=== PATIENT | male | born 1980 | race Caucasian/White ===

== ENCOUNTER 2019-01-10 21:11 | Emergency (ER) | payer SELFPAY ==
[~2019-01-10] VITALS: Ht 165.1 cm; Wt 81.6 kg
[2019-01-10 21:15] VITALS: BP 137/90
--- NOTE | 2019-01-10 21:15 | NUR ---
TO BED # 04 AMBULATORY
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
[2019-01-10] MEDS ORDERED: LIDOCAINE 1% 500 MG/50 ML VIAL INJ SCH (21:40)
[2019-01-10] MEDS ORDERED: LIDOCAINE MPF 1% - 5 mL VIAL 10 ML ONE ×2 (21:50→22:07)
--- NOTE | 2019-01-10 22:06 | NUR ---
Dr. Sullivan examining patient.
--- NOTE | 2019-01-10 22:12 | NUR ---
DR. BLEVINS PERFORMING LAC REPAIR TO LEFT HAND AT BEDSIDE. LIDOCAINE 1% [address] BLEVINS.
--- NOTE | 2019-01-10 22:15 | NUR ---
TDAP CONSENT FORM PROVIDED AND SIGNED.
--- NOTE | 2019-01-10 22:20 | NUR ---
Patient has approximately 8 cm laceration to left hand. Dr. Sullivan applied 12 sutures using sterile technique. Edges well approximated. Site cleansed with betadine. Wrapped with non-adhesive dressing by EMT. No bleeding noted. Pt tolerated well.
[2019-01-10 22:46] VITALS: BP 135/92
--- NOTE | 2019-01-10 22:46 | NUR ---
Patient discharged with v/s stable. Written and verbal after care instructions given and explained. Patient alert, oriented and verbalized understanding of instructions. Ambulatory with steady gait. All questions addressed prior to discharge. ID band removed. Patient advised to follow up with PMD. Rx of Naprosyn and Keflex given. Patient educated on indication of medication including possible reaction and side effects. Opportunity to ask questions provided and answered. Pt discharged by Dr. Sullivan.
[2019-01-10] MEDS ORDERED: BACITRACIN OINT 500 UNITS/GM PKT TP ONE (22:58)
== END 2019-01-10 22:46 | disposition home or self-care (01) ==
LOC: MED 21:11
DX: S61.412A Laceration without foreign body of left hand, initial encounter (principal); W26.8XXA Contact with other sharp object(s), not elsewhere classified, initial encounter; Y93.89 Activity, other specified; Y92.89 Other specified places as the place of occurrence of the external cause; Y99.8 Other external cause status
CPT/HCPCS: 12002; 90471; 90715; 99283; J2001; 12001

== ENCOUNTER 2019-01-13 12:05 | Emergency (ER) | payer SELFPAY ==
[~2019-01-13] VITALS: Ht 165.1 cm; Wt 81.6 kg
[2019-01-13 12:18] VITALS: BP 176/95
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
--- NOTE | 2019-01-13 12:20 | NUR ---
DR RYAN EVALUATING PT
[2019-01-13 12:23] VITALS: BP 176/95
--- NOTE | 2019-01-13 12:23 | NUR ---
Patient discharged with v/s stable. Written and verbal after care instructions given and explained. Patient verbalized understanding. Ambulatory with steady gait. All questions addressed prior to discharge. Advised to follow up with PMD.
== END 2019-01-13 12:23 | disposition home or self-care (01) ==
LOC: MED 12:05
DX: S61.412D Laceration without foreign body of left hand, subsequent encounter (principal); Z48.00 Encounter for change or removal of nonsurgical wound dressing; W26.8XXD Contact with other sharp object(s), not elsewhere classified, subsequent encounter
CPT/HCPCS: 99281

== ENCOUNTER 2019-01-19 11:41 | Emergency (ER) | payer SELFPAY ==
[~2019-01-19] VITALS: Ht 165.1 cm; Wt 81.6 kg
[2019-01-19 11:49] VITALS: BP 143/94
--- NOTE | 2019-01-19 11:53 | NUR ---
PATIENT AMBULATED TO BED 5.
--- NOTE | 2019-01-19 11:57 | NUR ---
PT PRESENTS TO ED FOR LEFT HAND SUTURE REMOVAL. 12 INTACT SUTURES NOTED, NO S/S INFECTION. PT DENIES PAIN AT THIS TIME. PER PT SUTURES WERE PLACED APPROX 11 DAYS AGO.
--- NOTE | 2019-01-19 11:59 | NUR ---
Sutures removed by Dr. Adames. Pt tolerated procedure well. Edges well approximated. Pt denies any pain.
[2019-01-19 12:11] VITALS: BP 138/88
== END 2019-01-19 12:11 | disposition home or self-care (01) ==
LOC: MED 11:41
DX: S61.412D Laceration without foreign body of left hand, subsequent encounter (principal); W31.2XXD Contact with powered woodworking and forming machines, subsequent encounter
CPT/HCPCS: 99281; 99283

== ENCOUNTER 2019-01-24 18:39 | Emergency (ER) | payer SELFPAY ==
[~2019-01-24] VITALS: Ht 165.1 cm; Wt 81.6 kg
--- NOTE | 2019-01-24 18:39 | NUR ---
PATIENT WHEELCHAIR ASSISTED TO BED 10
[2019-01-24 18:40] VITALS: BP 141/100
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
--- NOTE | 2019-01-24 18:52 | NUR ---
DEEPIKA ALEMAN CALLED AND MADE AWARE OF SITUATION, WILL BE SENDING OFFICER TO FOLLOW UP.
--- NOTE | 2019-01-24 18:54 | NUR ---
BARBARA EMT AT BEDSIDE FOR WOUND CARE
--- NOTE | 2019-01-24 18:55 | NUR ---
ICE PACKS PLACED TO FACE AND BACK OF HEAD.
--- NOTE | 2019-01-24 19:04 | NUR ---
DEEPIKA ALEMAN SPEAKING WITH PT AT THIS TIME
--- NOTE | 2019-01-24 19:07 | NUR ---
GAVE REPORT TO MADALYN ARNOLD, TRANSFER OF CARE
--- NOTE | 2019-01-24 19:39 | NUR ---
DR. NICOLE AT BEDSIDE TO EVAL PT.
[2019-01-24] MEDS ORDERED: LIDOCAINE 1% 500 MG/50 ML VIAL INJ SCH (20:05)
[2019-01-24] MEDS ORDERED: LIDOCAINE MPF 1% 5mL VIAL INJ ONE ×2 (20:15)
[2019-01-24] MEDS ORDERED: LIDOCAINE MPF 1% - 5 mL VIAL 5 ML ONE ×2 (20:21→20:22)
[2019-01-24] MEDS ORDERED: KETOROLAC 60 MG/2 ML VIAL IM ONE (20:30)
--- NOTE | 2019-01-24 20:49 | NUR ---
PT STATES 5/10 PAIN TO HEAD, TORADOL IM HAS BEEN ADMINISTERED.
--- NOTE | 2019-01-24 20:54 | NUR ---
PT TAKEN TO CT
--- NOTE | 2019-01-24 21:07 | NUR ---
PT RETURN FROM CT
--- NOTE | 2019-01-24 21:47 | NUR ---
[place] [facility] AT BEDSIDE
[2019-01-24] MEDS ORDERED: CLINDAMYCIN 600 MG/4 ML VIAL IM ONE (21:50)
[2019-01-24] MEDS ORDERED: NEOMYCIN/POLYMYXIN/BACITRACIN 0.9 GM/1 PKT TP ONE (22:05)
--- NOTE | 2019-01-24 22:15 | NUR ---
PT PROVIDED WITH PAPER SCRUBS, HELPED TO DRESS. PT FAMILY IN LOBBY TO CAPACITY ANALYST PT WHEN D/C. PT AWAKE AND ALERT, VSS, NO ACTIVE BLEEDING.
[2019-01-24 22:28] VITALS: BP 115/75
--- NOTE | 2019-01-24 22:28 | NUR ---
Patient discharged with v/s stable. Written and verbal after care instructions given and explained. Patient alert, oriented and verbalized understanding of instructions. Ambulatory with steady gait. All questions addressed prior to discharge. ID band removed. Patient advised to follow up with PMD. Rx of CLEOCIN, MOTRIN given. Patient educated on indication of medication including possible reaction and side effects. Opportunity to ask questions provided and answered.
== END 2019-01-24 22:28 | disposition home or self-care (01) ==
LOC: MED 18:39
DX: S02.2XXA Fracture of nasal bones, initial encounter for closed fracture (principal); S01.81XA Laceration without foreign body of other part of head, initial encounter; Y04.8XXA Assault by other bodily force, initial encounter; Y93.89 Activity, other specified; Y92.89 Other specified places as the place of occurrence of the external cause; Y99.8 Other external cause status
CPT/HCPCS: 12014; 70450; 70486; 96372; 99284; J1885; J2001; J3490

== ENCOUNTER 2020-08-20 22:11 | Emergency (ER) | payer SELFPAY ==
[~2020-08-20] VITALS: Ht 167.6 cm; Wt 107.0 kg
[2020-08-20 22:11] VITALS: BP 141/86
[2020-08-20] MEDS ORDERED: IBUPROFEN 600 MG TAB PO ONE (22:20)
[2020-08-20] MEDS ORDERED: NACL 0.9% 1,000 ML IV ONE ×2 (22:20→23:10)
[2020-08-20 22:44] LABS: BASOPHILS % (AUTO) 0.5 % (0.0-2.0); EOSINOPHILS # (AUTO) 0.1 K/uL (0-0.4); EOSINOPHILS % (AUTO) 1.7 % (0.0-4.0); HEMATOCRIT 48.7 % (36-52); HEMOGLOBIN 16.5 g/dL (12.0-18.0); LYMPHOCYTES # (AUTO) 3.8 K/uL (2.0-11.5); LYMPHOCYTES % (AUTO) 51.3 % (20.5-51.1); MEAN CORPUSCULAR HEMOGLOBIN 34 pg (27-31); MEAN CORPUSCULAR HGB CONC 34 g/dL (33-37); MEAN CORPUSCULAR VOLUME 99.9 fL (80-94); MONOCYTES # (AUTO) 0.6 K/uL (0.8-1.0); MONOCYTES % (AUTO) 7.9 % (1.7-9.3); NEUTROPHILS # (AUTO) 2.9 K/uL (1.8-7.7); NEUTROPHILS % (AUTO) 38.6 % (42.2-75.2); PLATELET COUNT (AUTO) 264 K/uL (140-450); RED BLOOD CELL COUNT(AUTO) 4.87 MIL/uL (4.20-6.10); RED CELL DISTRIBUTION WIDTH 12.9 % (11.6-13.7); WHITE BLOOD COUNT (AUTO) 7.4 K/uL (4.8-10.8)
[2020-08-20 23:37] LABS: POTASSIUM 3.2 mmol/L (3.5-5.1)
[2020-08-20 23:38] LABS: ANION GAP 15.9 (8-16); CARBON DIOXIDE 26.3 mmol/L (21-32); CREATININE 0.9 mg/dL (0.6-1.3)
[2020-08-21 00:55] VITALS: BP 110/70
== END 2020-08-21 00:55 ==
LOC: MED 22:11
DX: S63.502A Unspecified sprain of left wrist, initial encounter (principal); F10.129 Alcohol abuse with intoxication, unspecified; Y90.9 Presence of alcohol in blood, level not specified; Z02.89 Encounter for other administrative examinations; V49.9XXA Car occupant (driver) (passenger) injured in unspecified traffic accident, initial encounter; Y93.89 Activity, other specified; Y92.89 Other specified places as the place of occurrence of the external cause; Y99.8 Other external cause status
CPT/HCPCS: 29125; 36415; 70450; 73110; 73120; 80048; 85025; 96360; 96361; 99285; G0482; J7030